=== PATIENT | female | born 1935 | race Hispanic/Latino ===

== ENCOUNTER → 2018-03-17 | Outpatient (CLI) | payer MEDICARE ==
[~2018-03-17] VITALS: Ht 152.4 cm; Wt 57.2 kg
[~2018-03-17] MED LIST: REGADENOSON 0.4 MG/5 ML PF SYG IVP SCH
== END | disposition home or self-care (01) ==
LOC: SHCH 08:22
PROVIDERS: ATTEND Internal Medicine Cardiovascular Disease
DX: I25.119 Atherosclerotic heart disease of native coronary artery with unspecified angina pectoris (principal)
CPT/HCPCS: 78452; 93017; 96374; A9500 ×2; J2785

== ENCOUNTER → 2018-11-15 | Outpatient (CLI) | payer MEDICARE | END | disposition home or self-care (01) | LOC: SHCH 11:19 | PROVIDERS: ATTEND Internal Medicine Cardiovascular Disease | DX: I65.23 Occlusion and stenosis of bilateral carotid arteries (principal); I10 Essential (primary) hypertension | CPT/HCPCS: 93880 ==

== ENCOUNTER → 2019-10-31 | Outpatient (CLI) | payer MEDICARE | END | disposition home or self-care (01) | LOC: SHCH 09:00 | PROVIDERS: ATTEND Internal Medicine Cardiovascular Disease | DX: I65.23 Occlusion and stenosis of bilateral carotid arteries (principal) | CPT/HCPCS: 93880 ==

== ENCOUNTER → 2019-11-17 | Outpatient (CLI) | payer MEDICARE | END | disposition home or self-care (01) | LOC: SHCH 08:42 | PROVIDERS: ATTEND Internal Medicine Cardiovascular Disease | DX: I10 Essential (primary) hypertension (principal); I25.709 Atherosclerosis of coronary artery bypass graft(s), unspecified, with unspecified angina pectoris | CPT/HCPCS: 93306; 93356 ==

== ENCOUNTER → 2019-11-20 | Outpatient (CLI) | payer MEDICARE | END | disposition home or self-care (01) | LOC: SHCH 08:26 | PROVIDERS: ATTEND Internal Medicine Cardiovascular Disease | DX: I25.709 Atherosclerosis of coronary artery bypass graft(s), unspecified, with unspecified angina pectoris (principal) | CPT/HCPCS: 78452; 93017; 96374; A9500 ×2; J2785 ==

== ENCOUNTER → 2020-09-03 | Outpatient (CLI) | payer MEDICARE | END | disposition home or self-care (01) | LOC: SHCH 08:01 | PROVIDERS: ATTEND Internal Medicine Cardiovascular Disease | DX: I65.22 Occlusion and stenosis of left carotid artery (principal); I25.810 Atherosclerosis of coronary artery bypass graft(s) without angina pectoris; I73.9 Peripheral vascular disease, unspecified | CPT/HCPCS: 93925; 93978 ==

== ENCOUNTER → 2020-10-08 | Outpatient (CLI) | payer MEDICARE ==
[~2020-10-08] MED LIST changes: +IOHEXOL 350 MG/ML 100ML INFUS..BTL IV ONE; +IOHEXOL-350 50ML VIAL IV ONE; -REGADENOSON 0.4 MG/5 ML PF SYG IVP SCH
== END | disposition home or self-care (01) ==
LOC: RAH 07:50
PROVIDERS: ATTEND Internal Medicine Cardiovascular Disease
DX: I35.0 Nonrheumatic aortic (valve) stenosis (principal); I70.0 Atherosclerosis of aorta; N32.89 Other specified disorders of bladder; K44.9 Diaphragmatic hernia without obstruction or gangrene; K57.90 Diverticulosis of intestine, part unspecified, without perforation or abscess without bleeding; Z90.49 Acquired absence of other specified parts of digestive tract
CPT/HCPCS: 75635; Q9967 ×2

== ENCOUNTER 2021-01-09 06:10 | Inpatient (IN) | payer MEDICARE ==
[~2021-01-09] VITALS: Ht 154.9 cm; Wt 55.0 kg
[2021-01-09 07:01] LABS: BASOPHILS % (AUTO) 0.5 % (0.0-5.0); EOSINOPHILS % (AUTO) 3.7 % (0.0-8.0); HEMATOCRIT 37.5 % (36-48); LYMPHOCYTES % (AUTO) 32.1 % (21.0-51.0); MEAN CORPUSCULAR HEMOGLOBIN 31.4 pg (27.0-33.0); MEAN CORPUSCULAR HGB CONC 32.5 g/dL (32.0-36.0); MEAN CORPUSCULAR VOLUME 96.6 fL (79-99); NEUTROPHILS % (AUTO) 57.5 % (40.0-77.0); PLATELET COUNT (AUTO) 116 K/uL (130-400); RED BLOOD CELL COUNT(AUTO) 3.88 MIL/uL (4.00-5.50); RED CELL DISTRIBUTION WIDTH 12.9 % (11.0-15.5); WHITE BLOOD COUNT (AUTO) 6.2 K/uL (4.8-10.8)
[2021-01-09 07:16] LABS: BILIRUBIN,TOTAL 0.7 mg/dL (0.2-1.0); CREATININE 1.2 mg/dL (0.5-1.5); POTASSIUM 4.6 mmol/L (3.5-5.1); TOTAL PROTEIN, SERUM 7.9 g/dL (6.0-8.3)
[2021-01-09 07:57] LABS: INR 1.07 (0.85-1.15); PROTHROMBIN TIME 11.6 SEC (9.6-11.6)
[2021-01-09 07:58] LABS: PARTIAL THROMBOPLASTIN TIME 26.7 SEC (26.3-35.5)
[2021-01-09 08:03] LABS: CREATINE KINASE, TOTAL 83 U/L (21-232); LDL DIRECT 68 mg/dL (0-99)
[2021-01-09] MEDS ORDERED: DiphenhydrAMINE HCL 50 MG/ML VIAL IV PRN (09:00)
[2021-01-09] MEDS ORDERED: ACETAMINOPHEN 325 MG TAB PO PRN ×2 (09:00)
[2021-01-09] MEDS ORDERED: ASPIRIN 325MG TAB PO SCH (09:00)
[2021-01-09] MEDS ORDERED: FAMOTIDINE 20MG VIAL IV SCH (09:00)
[2021-01-09] MEDS ORDERED: ONDANSETRON 4MG INJ IV PRN (09:00)
[2021-01-09] MEDS: 0.9%NACL 1000ML 1,000 ML IV SCH ×2 (09:10→22:52)
[2021-01-09] MEDS: FAMOTIDINE 20MG VIAL IV SCH (09:10)
[2021-01-09] MEDS ORDERED: IOHEXOL-350 75 ML VIAL IV ONE (09:12)
[2021-01-09] MEDS ORDERED: ASPIRIN 81 MG EC TAB PO SCH (09:15)
[2021-01-09] MEDS ORDERED: AEC81 PO (09:23)
[2021-01-09] MEDS ORDERED: ISOS30TA11 PO (09:23)
[2021-01-09] MEDS ORDERED: EZET10TA48 PO (09:23)
[2021-01-09] MEDS ORDERED: CLOP75TA14 PO (09:23)
[2021-01-09] MEDS ORDERED: LEVO50CA4 PO (09:23)
[2021-01-09] MEDS ORDERED: SIMV-43 PO (09:23)
[2021-01-09] MEDS ORDERED: METF500S7 PO (09:23)
[2021-01-09] MEDS ORDERED: LISI10TA24 PO (09:23)
[2021-01-09] MEDS ORDERED: NATE60TA8 PO (09:23)
[2021-01-09] MEDS ORDERED: DEXTROSE 50%-WATER 50 ML DISP.SYRIN IV PRN (09:30)
[2021-01-09] MEDS ORDERED: GLUCAGON 1MG KIT 1 MG ML IM PRN (09:30)
[2021-01-09] MEDS ORDERED: HYDRALAZINE 20MG/ML VIAL IV PRN (09:30)
[2021-01-09] MEDS ORDERED: CLOPIDOGREL 75MG TAB PO SCH (09:30)
[2021-01-09 10:37] LABS: APPEARANCE,URINE Clear (CLEAR); BILIRUBIN,URINE Negative (NEGATIVE); COLOR,URINE Yellow (YELLOW); GLUCOSE, URINE (UA) Negative (NEGATIVE); KETONES,URINE Negative (NEGATIVE); LEUKOCYTE ESTERASE ,URINE Trace (NEGATIVE); NITRATE,URINE Positive (NEGATIVE); OCCULT BLOOD,URINE Negative (NEGATIVE); PH,URINE 6.5 (5.0-8.0); PROTEIN,URINE Negative (NEGATIVE); UROBILINOGEN,URINE 0.2 mg/dL (0.2-1.0)
[2021-01-09 10:53] LABS: BACTERIA,URINE Many /HPF (None Seen); RBC,URINE 0-1 /HPF (0-1); SQUAMOUS EPITHELIAL CELL,UR Rare /HPF (0-2); WBC,URINE 0-1 /HPF (0-1)
[2021-01-09] MEDS: INSULIN HUMULIN R 100 UNIT/ML 3ML SQ SCH ×3 (11:30→20:10)
[2021-01-09] MEDS ORDERED: CEFTRIAXONE 2GM VIAL IVP SCH (11:30)
[2021-01-09] MEDS: SIMVASTATIN 20 MG TABLET PO SCH (19:51)
[2021-01-09] MEDS: ISOSORBIDE DINITRATE 10MG TAB PO SCH (19:51)
[2021-01-09] MEDS ORDERED: ATORVASTATIN 10 MG TABLET PO SCH (21:00)
[2021-01-10] MEDS: LEVOTHYROXINE 50 MCG TABLET PO SCH (06:26)
[2021-01-10 06:43] LABS: HEMATOCRIT 34.8 % (36-48); MEAN CORPUSCULAR VOLUME 96.9 fL (79-99); RED BLOOD CELL COUNT(AUTO) 3.59 MIL/uL (4.00-5.50); RED CELL DISTRIBUTION WIDTH 12.8 % (11.0-15.5)
[2021-01-10 06:50] LABS: INR 1.09 (0.85-1.15); PROTHROMBIN TIME 11.8 SEC (9.6-11.6)
[2021-01-10 06:56] LABS: HEMOGLOBIN A1C 6.9 % (4.0-6.0)
[2021-01-10 07:01] LABS: ALBUMIN 3.2 g/dL (3.5-5.0); BILIRUBIN,TOTAL 0.4 mg/dL (0.2-1.0); CREATININE 1.3 mg/dL (0.5-1.5); POTASSIUM 4.9 mmol/L (3.5-5.1); TOTAL PROTEIN, SERUM 6.8 g/dL (6.0-8.3)
[2021-01-10] MEDS: INSULIN HUMULIN R 100 UNIT/ML 3ML SQ SCH ×4 (07:30→21:00)
[2021-01-10] MEDS: ISOSORBIDE DINITRATE 10MG TAB PO SCH ×2 (07:30→13:55)
[2021-01-10] MEDS: EZETIMIBE 10 MG TAB PO SCH (09:00)
[2021-01-10] MEDS: CEFTRIAXONE 1G VIAL IVP SCH (10:42)
[2021-01-10] MEDS: FAMOTIDINE 20MG VIAL IV SCH (10:43)
[2021-01-10] MEDS: ASPIRIN 81 MG EC TAB PO SCH (10:45)
[2021-01-10] MEDS: CLOPIDOGREL 75MG TAB PO SCH (10:45)
[2021-01-10] MEDS: LISINOPRIL 10 MG TABLET PO SCH (10:46)
[2021-01-10 11:50] VITALS: BP 179/65
[2021-01-10 16:00] VITALS: BP 100/51
[2021-01-10] MEDS: SIMVASTATIN 20 MG TABLET PO SCH (17:55)
[2021-01-10 19:06] VITALS: BP 117/45
[2021-01-10 23:20] VITALS: BP 115/48
[2021-01-11] MEDS: 0.9%NACL 1000ML 1,000 ML IV SCH ×2 (02:00→16:43)
[2021-01-11 04:02] VITALS: BP 121/56
[2021-01-11] MEDS: LEVOTHYROXINE 50 MCG TABLET PO SCH (05:28)
[2021-01-11] MEDS: INSULIN HUMULIN R 100 UNIT/ML 3ML SQ SCH ×4 (06:31→21:00)
[2021-01-11 06:38] LABS: BASOPHILS % (AUTO) 0.9 % (0.0-5.0); EOSINOPHILS % (AUTO) 5.3 % (0.0-8.0); HEMATOCRIT 30.4 % (36-48); LYMPHOCYTES % (AUTO) 31.5 % (21.0-51.0); MEAN CORPUSCULAR HEMOGLOBIN 31.8 pg (27.0-33.0); MEAN CORPUSCULAR HGB CONC 32.6 g/dL (32.0-36.0); MEAN CORPUSCULAR VOLUME 97.7 fL (79-99); MONOCYTES % (AUTO) 8.9 % (3.0-13.0); NEUTROPHILS % (AUTO) 53.2 % (40.0-77.0); PLATELET COUNT (AUTO) 103 K/uL (130-400); RED BLOOD CELL COUNT(AUTO) 3.11 MIL/uL (4.00-5.50); RED CELL DISTRIBUTION WIDTH 13.2 % (11.0-15.5); WHITE BLOOD COUNT (AUTO) 5.3 K/uL (4.8-10.8)
[2021-01-11 07:00] LABS: ALBUMIN 2.9 g/dL (3.5-5.0); BILIRUBIN,TOTAL 0.4 mg/dL (0.2-1.0); CREATININE 1.5 mg/dL (0.5-1.5); POTASSIUM 4.9 mmol/L (3.5-5.1); TOTAL PROTEIN, SERUM 6.1 g/dL (6.0-8.3)
[2021-01-11] MEDS ORDERED: PHARMACY COMMUNICATION MISC SCH (07:00)
[2021-01-11] MEDS: ISOSORBIDE DINITRATE 10MG TAB PO SCH (07:30)
[2021-01-11 08:00] VITALS: BP 160/58
[2021-01-11] MEDS: ASPIRIN 81 MG EC TAB PO SCH (09:23)
[2021-01-11] MEDS: EZETIMIBE 10 MG TAB PO SCH (09:23)
[2021-01-11] MEDS: LISINOPRIL 10 MG TABLET PO SCH (09:23)
[2021-01-11] MEDS: CLOPIDOGREL 75MG TAB PO SCH (09:23)
[2021-01-11] MEDS: FAMOTIDINE 20MG VIAL IV SCH (09:23)
[2021-01-11] MEDS: CEFTRIAXONE 1G VIAL IVP SCH (09:24)
[2021-01-11 12:00] VITALS: BP 141/53
[2021-01-11 16:00] VITALS: BP 158/60
[2021-01-11] MEDS ORDERED: TIMO1DRO5 OP (16:18)
[2021-01-11] MEDS: SIMVASTATIN 20 MG TABLET PO SCH (16:43)
[2021-01-11 20:00] VITALS: BP 144/54
[2021-01-11] MEDS ORDERED: TIMOLOL MALEATE OP SCH (21:00)
[2021-01-11] MEDS ORDERED: [UNRECOGNIZED DRUG - OTHER] OP SCH (21:00)
[2021-01-11] MEDS ORDERED: ISOSORBIDE MONO 30MG SR TAB PO SCH (21:00)
[2021-01-11] MEDS: TIMOLOL MALEATE 0.5% 5 ML BOTTLE OS SCH (21:31)
[2021-01-12] VITALS: BP 160/56
[2021-01-12 04:00] VITALS: BP 160/59
[2021-01-12] MEDS: INSULIN HUMULIN R 100 UNIT/ML 3ML SQ SCH ×4 (06:07→20:56)
[2021-01-12] MEDS: LEVOTHYROXINE 50 MCG TABLET PO SCH (06:07)
[2021-01-12 06:43] LABS: CREATININE 1.1 mg/dL (0.5-1.5); POTASSIUM 4.6 mmol/L (3.5-5.1)
[2021-01-12 08:00] VITALS: BP 174/64
[2021-01-12] MEDS: TIMOLOL MALEATE 0.5% 5 ML BOTTLE OS SCH ×2 (09:00→20:57)
[2021-01-12] MEDS: LISINOPRIL 10 MG TABLET PO SCH (10:10)
[2021-01-12] MEDS: EZETIMIBE 10 MG TAB PO SCH (10:11)
[2021-01-12] MEDS: CLOPIDOGREL 75MG TAB PO SCH (10:11)
[2021-01-12] MEDS: FAMOTIDINE 20MG VIAL IV SCH (10:11)
[2021-01-12] MEDS: CEFTRIAXONE 1G VIAL IVP SCH (10:12)
[2021-01-12] MEDS: ASPIRIN 81 MG EC TAB PO SCH (10:13)
[2021-01-12] MEDS: ISOSORBIDE DINITRATE 10MG TAB PO SCH ×2 (11:39→20:57)
[2021-01-12 11:55] VITALS: BP 144/51
[2021-01-12 16:09] VITALS: BP 166/53
[2021-01-12] MEDS: SIMVASTATIN 20 MG TABLET PO SCH (16:37)
[2021-01-12 20:00] VITALS: BP 145/55
[2021-01-13] VITALS (7 sets, daily range): BP systolic 126–154; BP diastolic 49–63
[2021-01-13] MEDS: INSULIN HUMULIN R 100 UNIT/ML 3ML SQ SCH ×4 (05:30→21:26)
[2021-01-13] MEDS: LEVOTHYROXINE 50 MCG TABLET PO SCH (06:17)
[2021-01-13 07:12] LABS: BASOPHILS % (AUTO) 1.2 % (0.0-5.0); LYMPHOCYTES % (AUTO) 33.1 % (21.0-51.0); MEAN CORPUSCULAR HEMOGLOBIN 31.8 pg (27.0-33.0); MEAN CORPUSCULAR HGB CONC 32.9 g/dL (32.0-36.0); MEAN CORPUSCULAR VOLUME 96.6 fL (79-99); MONOCYTES % (AUTO) 8.8 % (3.0-13.0); NEUTROPHILS % (AUTO) 49.7 % (40.0-77.0); PLATELET COUNT (AUTO) 107 K/uL (130-400); RED BLOOD CELL COUNT(AUTO) 3.21 MIL/uL (4.00-5.50); WHITE BLOOD COUNT (AUTO) 4.9 K/uL (4.8-10.8)
[2021-01-13 07:34] LABS: CREATININE 1.1 mg/dL (0.5-1.5); POTASSIUM 4.3 mmol/L (3.5-5.1)
[2021-01-13] MEDS: FUROSEMIDE 20 MG TABLET PO SCH (08:23)
[2021-01-13] MEDS: EZETIMIBE 10 MG TAB PO SCH (08:23)
[2021-01-13] MEDS: CLOPIDOGREL 75MG TAB PO SCH (08:23)
[2021-01-13] MEDS: ASPIRIN 81 MG EC TAB PO SCH (08:23)
[2021-01-13] MEDS: ISOSORBIDE DINITRATE 10MG TAB PO SCH ×2 (08:24→21:17)
[2021-01-13] MEDS: CEFTRIAXONE 1G VIAL IVP SCH (08:24)
[2021-01-13] MEDS: LISINOPRIL 10 MG TABLET PO SCH (08:24)
[2021-01-13] MEDS: FAMOTIDINE 20MG VIAL IV SCH (08:24)
[2021-01-13] MEDS: TIMOLOL MALEATE 0.5% 5 ML BOTTLE OS SCH ×2 (08:25→21:31)
[2021-01-13] MEDS: SIMVASTATIN 20 MG TABLET PO SCH (16:12)
[2021-01-14 04:42] VITALS: BP 148/59
[2021-01-14 05:53] LABS: BASOPHILS % (AUTO) 1.2 % (0.0-5.0); EOSINOPHILS % (AUTO) 5.9 % (0.0-8.0); LYMPHOCYTES % (AUTO) 31.6 % (21.0-51.0); MEAN CORPUSCULAR HEMOGLOBIN 32.1 pg (27.0-33.0); MEAN CORPUSCULAR HGB CONC 32.6 g/dL (32.0-36.0); MEAN CORPUSCULAR VOLUME 98.3 fL (79-99); MONOCYTES % (AUTO) 10.2 % (3.0-13.0); NEUTROPHILS % (AUTO) 50.9 % (40.0-77.0); PLATELET COUNT (AUTO) 120 K/uL (130-400); RED BLOOD CELL COUNT(AUTO) 3.46 MIL/uL (4.00-5.50); WHITE BLOOD COUNT (AUTO) 5.6 K/uL (4.8-10.8)
[2021-01-14 06:04] LABS: CREATININE 1.4 mg/dL (0.5-1.5); POTASSIUM 4.5 mmol/L (3.5-5.1)
[2021-01-14] MEDS: INSULIN HUMULIN R 100 UNIT/ML 3ML SQ SCH ×2 (07:30→11:30)
[2021-01-14 08:04] VITALS: BP 165/56
[2021-01-14] MEDS: TIMOLOL MALEATE 0.5% 5 ML BOTTLE OS SCH (08:25)
[2021-01-14 10:40] VITALS: BP 149/47
[2021-01-14] MEDS: FUROSEMIDE 20 MG TABLET PO SCH (10:40)
[2021-01-14] MEDS: LEVOTHYROXINE 50 MCG TABLET PO SCH (10:40)
[2021-01-14] MEDS: EZETIMIBE 10 MG TAB PO SCH (10:41)
[2021-01-14] MEDS: LISINOPRIL 10 MG TABLET PO SCH (10:41)
[2021-01-14] MEDS: CLOPIDOGREL 75MG TAB PO SCH (10:41)
[2021-01-14] MEDS: ASPIRIN 81 MG EC TAB PO SCH (10:41)
[2021-01-14] MEDS: FAMOTIDINE 20MG VIAL IV SCH (10:41)
[2021-01-14] MEDS: ISOSORBIDE DINITRATE 10MG TAB PO SCH (10:41)
[2021-01-14] MEDS: CEFTRIAXONE 1G VIAL IVP SCH (10:42)
[2021-01-14] MEDS ORDERED: CEPH500B PO (11:19)
[2021-01-14] MEDS ORDERED: CLOP75TA14 PO (16:38)
== END 2021-01-14 17:45 | disposition home or self-care (01) | DRG 65 ==
LOC: EDH 06:10 → OBSVTOIN 08:51 → EDHIP 08:51 → 4BH 01-10 11:49 → UNDODISIN 01-14 17:45
PROVIDERS: ADMIT Hospitalist; ATTEND Hospitalist
DX: I63.81 Other cerebral infarction due to occlusion or stenosis of small artery (principal); I50.32 Chronic diastolic (congestive) heart failure; N39.0 Urinary tract infection, site not specified; E11.65 Type 2 diabetes mellitus with hyperglycemia; E11.51 Type 2 diabetes mellitus with diabetic peripheral angiopathy without gangrene; I11.0 Hypertensive heart disease with heart failure; I27.20 Pulmonary hypertension, unspecified; F41.9 Anxiety disorder, unspecified; E78.5 Hyperlipidemia, unspecified; I25.10 Atherosclerotic heart disease of native coronary artery without angina pectoris; E03.9 Hypothyroidism, unspecified; B96.89 Other specified bacterial agents as the cause of diseases classified elsewhere; E78.00 Pure hypercholesterolemia, unspecified; G51.0 Bell's palsy; G93.89 Other specified disorders of brain; I08.1 Rheumatic disorders of both mitral and tricuspid valves; Z79.82 Long term (current) use of aspirin; Z98.62 Peripheral vascular angioplasty status; Z95.5 Presence of coronary angioplasty implant and graft; Z95.1 Presence of aortocoronary bypass graft; Z90.710 Acquired absence of both cervix and uterus; Z90.49 Acquired absence of other specified parts of digestive tract; Z83.3 Family history of diabetes mellitus; Z82.3 Family history of stroke; Z82.49 Family history of ischemic heart disease and other diseases of the circulatory system
CPT/HCPCS: 36415; 70450; 70496; 70498; 70551; 71045; 80048; 80053; 80061; 81001; 82550; 82948; 83036; 83721; 83874; 83880; 84484; 85025; 85027; 85610; 85730; 87077; 87088; 87186; 92522; 92610; 93005; 93306; 93356; 93880; G0378; J0696; J1815; J3490; J7030; Q9967

== ENCOUNTER → 2021-03-26 | Outpatient (CLI) | payer MEDICARE ==
[~2021-03-26] MED LIST changes: +AEC81 PO; +CEPH500B PO; +CLOP75TA14 PO; +EZET10TA48 PO; -IOHEXOL 350 MG/ML 100ML INFUS..BTL IV ONE; -IOHEXOL-350 50ML VIAL IV ONE; +IOHEXOL-350 75 ML VIAL IV ONE; +ISOS30TA11 PO; +LEVO50CA4 PO; +LISI10TA24 PO; +METF500S7 PO; +NATE60TA8 PO; +SIMV-43 PO; +TIMO1DRO5 OP
== END | disposition home or self-care (01) ==
LOC: RAH 07:33
PROVIDERS: ATTEND Internal Medicine Cardiovascular Disease
DX: I65.23 Occlusion and stenosis of bilateral carotid arteries (principal)
CPT/HCPCS: 70498; Q9967